=== PATIENT | male | born 1955 | race Caucasian/White ===

== ENCOUNTER 2023-05-09 13:08 | Inpatient (IN) ==
[2023-05-09] MEDS ORDERED: Furosemide 20 mg/2 ml IV VIAL IV ONE (15:20)
[2023-05-09 16:14] LABS: ABS Basophils 0.2 10^3/uL (0.0-0.1); ABS Eosinophils 0.2 10^3/uL (0.0-0.5); ABS Lymphocytes 1.3 10^3/uL (1.0-4.8); ABS Monocytes 0.7 10^3/uL (0.0-1.1); ABS Neutrophils 6.8 10^3/uL (1.5-7.6); Eosinophil % 2.6 %; Hematocrit 32.4 % (38-53); Hemoglobin 11.4 g/dL (13.2-16.3); Lymphocyte % 14.2 %; Mean Corpuscular Hemoglobin 31.3 pg (27-33); Mean Corpuscular Volume 89.3 fL (80-97); Mean Platelet Volume 7.5 fL (7.5-11.2); Platelet Count 421 10^3/uL (150-450); Red Blood Count 3.63 10^6/uL (4.06-5.63); Red Cell Distribution Width 12.5 % (12-17); White Blood Count 9.3 10^3/uL (3.6-10.2)
[2023-05-09 16:20] LABS: INR 1.22 (0.83-1.13)
[2023-05-09 16:57] LABS: ALT 13 U/L (7-52); AST 17 U/L (13-39); Albumin 3.2 g/dL (3.2-5.2); Albumin/Globulin Ratio 1.2 (1-3); Alkaline Phosphatase 49 U/L (35-149); Anion Gap 9 mmol/L (2-16); Blood Urea Nitrogen 13 mg/dL (6-24); CO2 Carbon Dioxide 24 mmol/L (22-32); Calcium 8.1 mg/dL (8.6-10.3); Chloride 106 mmol/L (101-111); Globulin 2.7 g/dL (2-4); Glucose 95 mg/dL (70-100); Magnesium 1.9 mg/dL (1.9-2.7); Potassium 3.9 mmol/L (3.5-5.0); Sodium 139 mmol/L (135-145); Total Bilirubin 0.6 mg/dL (0.2-1.0); Total Protein 5.9 g/dL (6.4-8.9)
[2023-05-09 17:00] LABS: C Reactive Protein 100.79 mg/L (<8.01); CRP High Sensitivity > 80.00 mg/L (<2.00)
[2023-05-09 17:09] LABS: LDH 209 U/L (140-271)
[2023-05-09] MEDS: Azithromycin 500 mg/250 ml NS 500 MG/250 ML BAG IVPB SCH (17:14)
[2023-05-09 17:18] LABS: Ferritin 496.6 ng/mL (24-336)
[2023-05-09 17:36] LABS: Erythrocyte Sed Rate 60 mm/Hr (0-19)
[2023-05-09 17:37] LABS: Urine Appearance Clear; Urine Bilirubin Negative (Negative); Urine Blood Negative (Negative); Urine Color Yellow; Urine Glucose Negative (Negative); Urine Ketones Negative (Negative); Urine Nitrite Negative (Negative); Urine Protein Negative (Negative); Urine Specific Gravity 1.017 (1.002-1.030); Urine Urobilinogen Negative (Negative)
[2023-05-09] MEDS ORDERED: Albuterol/Ipratropium NEB.SOL (2.5/0.5 MG) 3 ML NEB.SOLN INH PRN (17:54)
[2023-05-09] MEDS: cefTRIAXone 1 gm/50 mL D5W 1 GM/50 ML BAG IV SCH (18:29)
[2023-05-09 20:54] LABS: High Sensitivity Troponin 1 Hr 7 pg/mL (<20)
[2023-05-10 06:23] LABS: ABS Basophils 0.1 10^3/uL (0.0-0.1); ABS Eosinophils 0.4 10^3/uL (0.0-0.5); ABS Lymphocytes 1.4 10^3/uL (1.0-4.8); ABS Neutrophils 7.1 10^3/uL (1.5-7.6); Eosinophil % 3.6 %; Hematocrit 33.7 % (38-53); Lymphocyte % 13.7 %; Mean Corpuscular Hemoglobin 31.6 pg (27-33); Mean Corpuscular Hgb Conc 35.6 g/dL (31-36); Mean Corpuscular Volume 88.8 fL (80-97); Mean Platelet Volume 6.9 fL (7.5-11.2); Platelet Count 446 10^3/uL (150-450); Red Cell Distribution Width 12.6 % (12-17); White Blood Count 9.9 10^3/uL (3.6-10.2)
[2023-05-10 06:42] LABS: Calcium 8.2 mg/dL (8.6-10.3); Creatinine, Serum 0.85 mg/dL (0.67-1.17); Magnesium 1.9 mg/dL (1.9-2.7); Potassium 4.6 mmol/L (3.5-5.0); eGFR CKD-EPI 95.2 (>60)
[2023-05-10] MEDS ORDERED: Furosemide 40 mg/4 ml IV VIAL IV ONE (08:52)
[2023-05-10 14:15] LABS: Calcium 8.6 mg/dL (8.6-10.3); Creatinine, Serum 0.8 mg/dL (0.67-1.17); Potassium 3.7 mmol/L (3.5-5.0)
[2023-05-10] MEDS ORDERED: Potassium Chloride LIQUID 20 MEQ/15 ML LIQUID PO ONE (14:18)
[2023-05-10] MEDS ORDERED: Potassium Chlor 20 meq TAB.ER PO ONE (16:00)
[2023-05-10] MEDS: cefTRIAXone 1 gm/50 mL D5W 1 GM/50 ML BAG IV SCH (17:07)
[2023-05-10] MEDS: Azithromycin 500 mg/250 ml NS 500 MG/250 ML BAG IVPB SCH (19:17)
[2023-05-11 08:01] LABS: ABS Basophils 0.1 10^3/uL (0.0-0.1); ABS Eosinophils 0.3 10^3/uL (0.0-0.5); ABS Lymphocytes 1.4 10^3/uL (1.0-4.8); ABS Neutrophils 9.4 10^3/uL (1.5-7.6); ABS Nucleated RBC 0.01 10^3/ul; Eosinophil % 2.6 %; Hematocrit 37.5 % (38-53); Hemoglobin 12.8 g/dL (13.2-16.3); Lymphocyte % 11.6 %; Mean Corpuscular Hemoglobin 30.5 pg (27-33); Mean Corpuscular Hgb Conc 34.3 g/dL (31-36); Mean Corpuscular Volume 89.1 fL (80-97); Mean Platelet Volume 7.3 fL (7.5-11.2); Platelet Count 563 10^3/uL (150-450); Red Blood Count 4.21 10^6/uL (4.06-5.63); Red Cell Distribution Width 12.5 % (12-17); White Blood Count 12.2 10^3/uL (3.6-10.2)
[2023-05-11] MEDS ORDERED: Furosemide 40 mg/4 ml IV VIAL IV ONE (09:03)
[2023-05-11 09:12] LABS: Calcium 8.6 mg/dL (8.6-10.3); Creatinine, Serum 0.77 mg/dL (0.67-1.17); eGFR CKD-EPI 98.1 (>60)
[2023-05-11] MEDS: cefTRIAXone 1 gm/50 mL D5W 1 GM/50 ML BAG IV SCH (15:37)
[2023-05-11 15:56] LABS: Body Fluid Total Nucleated 902 /mcL
[2023-05-11 15:59] LABS: Body Fluid Appearance Cloudy; Body Fluid Color Yellow; Body Fluid Source Pleural Fluid
[2023-05-11] MEDS: Azithromycin 500 mg/250 ml NS 500 MG/250 ML BAG IVPB SCH (16:23)
[2023-05-11 16:55] LABS: Body Fluid Mono 53 %; Body Fluid Other Cells 5; Body Fluid Total Cells Counted 200
[2023-05-11 22:08] LABS: Total Protein 6.3 g/dL (6.4-8.9)
[2023-05-12 06:35] LABS: ABS Basophils 0.1 10^3/uL (0.0-0.1); ABS Eosinophils 0.4 10^3/uL (0.0-0.5); ABS Lymphocytes 1.7 10^3/uL (1.0-4.8); ABS Monocytes 0.8 10^3/uL (0.0-1.1); ABS Neutrophils 6.5 10^3/uL (1.5-7.6); Eosinophil % 3.9 %; Hematocrit 35.6 % (38-53); Hemoglobin 12.3 g/dL (13.2-16.3); Lymphocyte % 18.2 %; Mean Corpuscular Hemoglobin 30.7 pg (27-33); Mean Corpuscular Hgb Conc 34.5 g/dL (31-36); Mean Platelet Volume 7.1 fL (7.5-11.2); Platelet Count 529 10^3/uL (150-450); Red Cell Distribution Width 12.6 % (12-17); White Blood Count 9.4 10^3/uL (3.6-10.2)
[2023-05-12 06:51] LABS: Calcium 8.8 mg/dL (8.6-10.3); Creatinine, Serum 0.74 mg/dL (0.67-1.17); Phosphorus 3.8 mg/dL (2.5-5.0); eGFR CKD-EPI 99.3 (>60)
[2023-05-12 11:57] LABS: C-ANCA Negative (Negative); P-ANCA Negative (Negative)
[2023-05-12] MEDS: cefTRIAXone 1 gm/50 mL D5W 1 GM/50 ML BAG IV SCH (16:48)
[2023-05-12 22:21] LABS: Aspergillus IgG Ab 29.5 mg/L (<=102)
[2023-05-13 06:46] LABS: ABS Basophils 0.1 10^3/uL (0.0-0.1); ABS Eosinophils 0.4 10^3/uL (0.0-0.5); ABS Lymphocytes 1.7 10^3/uL (1.0-4.8); ABS Neutrophils 7.3 10^3/uL (1.5-7.6); Hematocrit 34.3 % (38-53); Hemoglobin 11.8 g/dL (13.2-16.3); Lymphocyte % 15.9 %; Mean Corpuscular Hemoglobin 30.4 pg (27-33); Mean Corpuscular Hgb Conc 34.4 g/dL (31-36); Mean Corpuscular Volume 88.3 fL (80-97); Mean Platelet Volume 7.3 fL (7.5-11.2); Platelet Count 532 10^3/uL (150-450); Red Blood Count 3.88 10^6/uL (4.06-5.63); Red Cell Distribution Width 12.5 % (12-17); White Blood Count 10.5 10^3/uL (3.6-10.2)
[2023-05-13 06:55] LABS: Calcium 8.5 mg/dL (8.6-10.3); Creatinine, Serum 0.82 mg/dL (0.67-1.17); Phosphorus 3.8 mg/dL (2.5-5.0); Potassium 4.3 mmol/L (3.5-5.0); eGFR CKD-EPI 96.3 (>60)
[2023-05-13] MEDS ORDERED: Furosemide 40 mg/4 ml IV VIAL IV ONE (09:33)
[2023-05-13 13:14] LABS: Lactate Dehydrogenase, BF 139 U/L
[2023-05-13 13:23] VITALS: BP 123/84
[2023-05-13 14:48] LABS: Aspergillus Fumigatus IgE <0.10 kU/L (<0.70); Immunoglobulin E 119 kU/L (<= 214)
[2023-05-13 15:37] LABS: Fluid Type, Protein, Total PLEURAL; Total Protein, BF 2.6 g/dL
[2023-05-13] MEDS: cefTRIAXone 1 gm/50 mL D5W 1 GM/50 ML BAG IV SCH (16:49)
== END 2023-05-13 18:55 | disposition home or self-care (01) | DRG 193 ==
LOC: ED 13:08 → EDHOLD 15:02 → SUATTDRO 15:02 → MED 18:58
PROVIDERS: ADMIT Internal Medicine; ATTEND Internal Medicine

== ENCOUNTER 2023-05-23 10:38 | Inpatient (IN) ==
[2023-05-23 14:36] LABS: ABS Basophils 0.1 10^3/uL (0.0-0.1); ABS Eosinophils 0.2 10^3/uL (0.0-0.5); ABS Lymphocytes 1.5 10^3/uL (1.0-4.8); ABS Monocytes 1.1 10^3/uL (0.0-1.1); ABS Neutrophils 9.6 10^3/uL (1.5-7.6); Eosinophil % 1.2 %; Hematocrit 34.4 % (38-53); Hemoglobin 11.9 g/dL (13.2-16.3); Lymphocyte % 12.2 %; Mean Corpuscular Hemoglobin 30.4 pg (27-33); Mean Corpuscular Hgb Conc 34.7 g/dL (31-36); Mean Corpuscular Volume 87.6 fL (80-97); Platelet Count 625 10^3/uL (150-450); Red Blood Count 3.92 10^6/uL (4.06-5.63); White Blood Count 12.5 10^3/uL (3.6-10.2)
[2023-05-23 14:46] LABS: Albumin 3.8 g/dL (3.2-5.2); Albumin/Globulin Ratio 1.2 (1-3); C Reactive Protein 77.06 mg/L (<8.01); Calcium 9.2 mg/dL (8.6-10.3); Creatinine, Serum 0.84 mg/dL (0.67-1.17); Globulin 3.2 g/dL (2-4); Potassium 4.4 mmol/L (3.5-5.0); Total Bilirubin 0.5 mg/dL (0.2-1.0); eGFR CKD-EPI 95.6 (>60)
[2023-05-23 14:50] LABS: INR 1.25 (0.83-1.13)
[2023-05-23] MEDS ORDERED: Vancomycin 1,000 MG in NS 0.9% 250 ml 250 ML IVPB ONE (17:59)
[2023-05-23] MEDS ORDERED: Piperacillin/Tazobac 3.375 BAG 3.375 GM/100 ML BAG IV ONE ×2 (17:59→23:00)
[2023-05-23] MEDS ORDERED: Enoxaparin 40 MG/0.4 ML SYR SUBCUT ONE (18:37)
[2023-05-23] MEDS ORDERED: Vancomycin per Pharmacy 1 EA NOTE FOLLOW UP SCH (21:00)
[2023-05-23] MEDS ORDERED: Zosyn per Pharmacy NOTE FOLLOW UP SCH (21:00)
[2023-05-23] MEDS ORDERED: ZOSYN 3.375 GM Q8H per EXTENDED INFUSION IV SCH (22:30)
[2023-05-23] MEDS: ZOSYN 3.375 GM Q8H per EXTENDED INFUSION IV SCH (23:18)
[2023-05-24] MEDS: Vancomycin 1,250 MG in NS 0.9% 250 ml 250 ML IVPB SCH ×2 (05:34→19:48)
[2023-05-24 06:24] LABS: Calcium 8.7 mg/dL (8.6-10.3); Creatinine, Serum 0.86 mg/dL (0.67-1.17); Potassium 3.9 mmol/L (3.5-5.0); eGFR CKD-EPI 94.9 (>60)
[2023-05-24 06:42] LABS: ABS Basophils 0.1 10^3/uL (0.0-0.1); ABS Eosinophils 0.4 10^3/uL (0.0-0.5); ABS Lymphocytes 1.4 10^3/uL (1.0-4.8); ABS Monocytes 1.3 10^3/uL (0.0-1.1); ABS Neutrophils 9.9 10^3/uL (1.5-7.6); Eosinophil % 2.8 %; Hematocrit 33.5 % (38-53); Hemoglobin 11.4 g/dL (13.2-16.3); Lymphocyte % 10.4 %; Mean Corpuscular Hemoglobin 29.6 pg (27-33); Mean Corpuscular Hgb Conc 34.1 g/dL (31-36); Mean Corpuscular Volume 86.9 fL (80-97); Mean Platelet Volume 7.2 fL (7.5-11.2); Platelet Count 556 10^3/uL (150-450); Red Blood Count 3.85 10^6/uL (4.06-5.63); Red Cell Distribution Width 13.2 % (12-17)
[2023-05-24] MEDS: ZOSYN 3.375 GM Q8H per EXTENDED INFUSION IV SCH ×3 (07:19→22:25)
[2023-05-24] MEDS: Aspirin EC 81 mg TAB.EC (enteric coated) PO SCH (09:17)
[2023-05-24] MEDS ORDERED: Vancomycin 1,000 MG in NS 0.9% 250 ml 250 ML IVPB ONE (17:00)
[2023-05-24 20:04] LABS: Body Fluid Total Nucleated 511 /mcL
[2023-05-24 20:38] LABS: Body Fluid Appearance Clear; Body Fluid Color Yellow; Body Fluid Mono 33 %; Body Fluid Other Cells 80; Body Fluid Source Pleural Fluid; Body Fluid Total Cells Counted 200
[2023-05-25] MEDS ORDERED: Vancomycin Trough Check NOTE FOLLOW UP ONE (06:00)
[2023-05-25 06:23] LABS: ABS Basophils 0.1 10^3/uL (0.0-0.1); ABS Eosinophils 0.4 10^3/uL (0.0-0.5); ABS Lymphocytes 1.3 10^3/uL (1.0-4.8); ABS Monocytes 1.3 10^3/uL (0.0-1.1); ABS Neutrophils 11.8 10^3/uL (1.5-7.6); Eosinophil % 2.7 %; Hematocrit 35.4 % (38-53); Lymphocyte % 8.4 %; Mean Corpuscular Hemoglobin 29.7 pg (27-33); Mean Corpuscular Volume 87.3 fL (80-97); Mean Platelet Volume 6.8 fL (7.5-11.2); Platelet Count 559 10^3/uL (150-450); Red Blood Count 4.05 10^6/uL (4.06-5.63); Red Cell Distribution Width 13.2 % (12-17); White Blood Count 14.9 10^3/uL (3.6-10.2)
[2023-05-25] MEDS: ZOSYN 3.375 GM Q8H per EXTENDED INFUSION IV SCH ×3 (06:26→22:35)
[2023-05-25 06:46] LABS: Calcium 8.7 mg/dL (8.6-10.3); Creatinine, Serum 0.75 mg/dL (0.67-1.17); Magnesium 1.9 mg/dL (1.9-2.7); Potassium 3.7 mmol/L (3.5-5.0); eGFR CKD-EPI 98.9 (>60)
[2023-05-25 07:01] LABS: Vancomycin Trough 8.2 mcg/mL
[2023-05-25] MEDS ORDERED: Potassium Chlor 20 meq TAB.ER PO ONE (07:08)
[2023-05-25] MEDS ORDERED: Furosemide 20 mg/2 ml IV VIAL IV SLOW PU ONE ×2 (07:13→17:40)
[2023-05-25] MEDS: Vancomycin 1,250 MG in NS 0.9% 250 ml 250 ML IVPB SCH ×2 (07:19→19:11)
[2023-05-25] MEDS: Aspirin EC 81 mg TAB.EC (enteric coated) PO SCH (07:54)
[2023-05-25] MEDS: Enoxaparin 40 MG/0.4 ML SYR SUBCUT SCH (07:56)
[2023-05-25] MEDS ORDERED: Iohexol 350 (CONTRAST) 500 ML MDV IV ONE (09:15)
[2023-05-25 16:21] LABS: TSH Ultra Thyroid Stim Horm 1.95 mcIU/mL (0.34-5.60)
[2023-05-26] MEDS: Vancomycin 1,250 MG in NS 0.9% 250 ml 250 ML IVPB SCH ×2 (05:28→20:17)
[2023-05-26 06:03] LABS: ABS Basophils 0.1 10^3/uL (0.0-0.1); ABS Eosinophils 0.5 10^3/uL (0.0-0.5); ABS Neutrophils 8.3 10^3/uL (1.5-7.6); ABS Nucleated RBC 0.01 10^3/ul; Eosinophil % 4.9 %; Hematocrit 30.2 % (38-53); Hemoglobin 10.6 g/dL (13.2-16.3); Lymphocyte % 9.1 %; Mean Corpuscular Hemoglobin 30.3 pg (27-33); Mean Corpuscular Hgb Conc 35.1 g/dL (31-36); Mean Corpuscular Volume 86.3 fL (80-97); Mean Platelet Volume 7.1 fL (7.5-11.2); Nucleated Red Blood Cells % 0.1 %/100WBC (0.0-0.8); Platelet Count 462 10^3/uL (150-450); Red Cell Distribution Width 13.4 % (12-17); White Blood Count 10.9 10^3/uL (3.6-10.2)
[2023-05-26 06:21] LABS: Calcium 8.3 mg/dL (8.6-10.3); Creatinine, Serum 0.77 mg/dL (0.67-1.17); Magnesium 1.8 mg/dL (1.9-2.7); Potassium 3.5 mmol/L (3.5-5.0); eGFR CKD-EPI 98.1 (>60)
[2023-05-26] MEDS ORDERED: Potassium Chlor 20 meq TAB.ER PO ONE (07:36)
[2023-05-26] MEDS: ZOSYN 3.375 GM Q8H per EXTENDED INFUSION IV SCH ×3 (07:37→23:30)
[2023-05-26] MEDS: Enoxaparin 40 MG/0.4 ML SYR SUBCUT SCH (09:56)
[2023-05-26] MEDS: Aspirin EC 81 mg TAB.EC (enteric coated) PO SCH (10:16)
[2023-05-26 15:27] LABS: Lactate Dehydrogenase, BF 154 U/L
[2023-05-26 18:22] LABS: JO-1 Antibody <0.2 U; RNP IgG Antibodies <0.2 U; SS-A/Ro Antibody <0.2 U; SS-B/La Antibody <0.2 U; Scl 70 Ab, IgG, S <0.2 U; Sm (Smith) IgG Antibody <0.2 U
[2023-05-26 18:54] LABS: Cyclic Citrullinated Pept IgG <15.6 U
[2023-05-27] MEDS ORDERED: fentaNYL 100 mcg/2 ml 50 MCG/ML VIAL ONE (07:00)
[2023-05-27] MEDS ORDERED: Propofol 10 MG/ML 20 ML BTL ONE (07:00)
[2023-05-27] MEDS ORDERED: Lidocaine 2% PF 5 ML VIAL ONE (07:00)
[2023-05-27] MEDS ORDERED: Midazolam 2 mg/2 ml VIAL 1 mg/ml 2 ml VIAL (2 mg) ONE (07:00)
[2023-05-27] MEDS ORDERED: Sevoflurane BOTTLE ONE (07:05)
[2023-05-27] MEDS ORDERED: Benzocaine/Butamben/Tetracain (CETACAINE - SINGLE USE) 5 gm TOPICAL ONE (07:11)
[2023-05-27] MEDS ORDERED: Lidocaine 1% VIAL 10 MG/ML 30 ML VIAL ONE (07:11)
[2023-05-27] MEDS ORDERED: Lidocaine 2% JELLY 6 ML Topical TOPICAL ONE (07:12)
[2023-05-27] MEDS ORDERED: Furosemide 20 mg/2 ml IV VIAL IV ONE (07:29)
[2023-05-27] MEDS ORDERED: Dexmedetomidine 200 mcg/2 ml 2 ml VIAL (200 mcg) ONE ×2 (07:43)
[2023-05-27] MEDS ORDERED: Rocuronium 50 mg VIAL 10 mg/ml 5 ml VIAL (50 mg) ONE (07:48)
[2023-05-27] MEDS ORDERED: Succinylcholine 200 mg VIAL 20 mg/ml 10 ml VIAL (200 mg) ONE (07:49)
[2023-05-27] MEDS ORDERED: Ondansetron 4 mg VIAL 2 MG/ML 2 ml VIAL ONE (08:20)
[2023-05-27] MEDS ORDERED: Dexamethasone IV 4 MG/ML VIAL 1 ml VIAL ONE (08:20)
[2023-05-27] MEDS: Vancomycin 1,250 MG in NS 0.9% 250 ml 250 ML IVPB SCH ×2 (10:00→18:09)
[2023-05-27] MEDS: methylPREDNISolone SOD SUCC 40 mg/ml 1 ml VIAL IV SCH ×3 (10:55→21:25)
[2023-05-27] MEDS: Aspirin EC 81 mg TAB.EC (enteric coated) PO SCH (10:57)
[2023-05-27] MEDS: ZOSYN 3.375 GM Q8H per EXTENDED INFUSION IV SCH ×3 (12:09→23:34)
[2023-05-27 12:20] LABS: Fluid Type, Protein, Total Pleural Fluid; Glucose, BF 132 mg/dL; Total Protein, BF 2.5 g/dL
[2023-05-28] MEDS: methylPREDNISolone SOD SUCC 40 mg/ml 1 ml VIAL IV SCH ×4 (03:47→20:21)
[2023-05-28] MEDS: Vancomycin 1,250 MG in NS 0.9% 250 ml 250 ML IVPB SCH ×2 (05:40→18:41)
[2023-05-28] MEDS ORDERED: Albuterol/Ipratropium NEB.SOL (2.5/0.5 MG) 3 ML NEB.SOLN INH PRN (06:14)
[2023-05-28 06:25] LABS: Hematocrit 33.3 % (38-53); Mean Corpuscular Hemoglobin 28.8 pg (27-33); Mean Corpuscular Hgb Conc 33.2 g/dL (31-36); Mean Corpuscular Volume 86.8 fL (80-97); Mean Platelet Volume 7.1 fL (7.5-11.2); Platelet Count 584 10^3/uL (150-450); Red Blood Count 3.84 10^6/uL (4.06-5.63); Red Cell Distribution Width 13.2 % (12-17); White Blood Count 27.8 10^3/uL (3.6-10.2)
[2023-05-28] MEDS: ZOSYN 3.375 GM Q8H per EXTENDED INFUSION IV SCH ×3 (06:41→23:14)
[2023-05-28 06:42] LABS: Calcium 8.9 mg/dL (8.6-10.3); Creatinine, Serum 0.74 mg/dL (0.67-1.17); Magnesium 1.9 mg/dL (1.9-2.7); Potassium 3.9 mmol/L (3.5-5.0); eGFR CKD-EPI 99.3 (>60)
[2023-05-28 06:46] LABS: PCO2 Arterial 34 mmHg (35-45); PO2 Arterial 62 mmHg (80-100)
[2023-05-28] MEDS ORDERED: Furosemide 40 mg/4 ml IV VIAL IV SLOW PU ONE (07:06)
[2023-05-28 07:10] LABS: ABS Basophils 0.1 10^3/uL (0.0-0.1); ABS Lymphocytes 0.5 10^3/uL (1.0-4.8); ABS Monocytes 0.8 10^3/uL (0.0-1.1); ABS Neutrophils 26.4 10^3/uL (1.5-7.6); Lymphocyte % 1.7 %
[2023-05-28] MEDS: Aspirin EC 81 mg TAB.EC (enteric coated) PO SCH (09:25)
[2023-05-28] MEDS: Enoxaparin 40 MG/0.4 ML SYR SUBCUT SCH (09:25)
[2023-05-28] MEDS ORDERED: Anidulafungin 200 MG in NS 0.9% 250 ml 200 ML IVPB ONE (10:08)
[2023-05-28 13:36] LABS: C Reactive Protein 133.65 mg/L (<8.01)
[2023-05-28] MEDS: Morphine 2 MG/ML SYRINGE IV PRN ×2 (17:22→23:41)
[2023-05-29] MEDS ORDERED: Furosemide 20 mg/2 ml IV VIAL IV SLOW PU ONE (00:09)
[2023-05-29] MEDS: Morphine 2 MG/ML SYRINGE IV PRN ×2 (03:35→05:32)
[2023-05-29] MEDS: methylPREDNISolone SOD SUCC 40 mg/ml 1 ml VIAL IV SCH ×3 (03:35→14:32)
[2023-05-29 04:54] LABS: Hematocrit 33.5 % (38-53); Hemoglobin 11.2 g/dL (13.2-16.3); Mean Corpuscular Hemoglobin 29.4 pg (27-33); Mean Corpuscular Hgb Conc 33.6 g/dL (31-36); Mean Corpuscular Volume 87.6 fL (80-97); Platelet Count 591 10^3/uL (150-450); Red Blood Count 3.82 10^6/uL (4.06-5.63); Red Cell Distribution Width 13.5 % (12-17); White Blood Count 33.3 10^3/uL (3.6-10.2)
[2023-05-29] MEDS ORDERED: Midazolam 2 mg/2 ml VIAL 1 mg/ml 2 ml VIAL (2 mg) IV SLOW PU ONE (05:39)
[2023-05-29] MEDS ORDERED: Midazolam 2 mg/2 ml VIAL 1 mg/ml 2 ml VIAL (2 mg) ONE (05:44)
[2023-05-29 05:48] LABS: ABS Lymphocytes 0.6 10^3/uL (1.0-4.8); ABS Monocytes 1.6 10^3/uL (0.0-1.1); Eosinophil % 0.1 %; Lymphocyte % 1.7 %
[2023-05-29] MEDS: Vancomycin 1,250 MG in NS 0.9% 250 ml 250 ML IVPB SCH ×2 (06:32→20:33)
[2023-05-29 06:36] LABS: Anion Gap 12 mmol/L (2-16); Blood Urea Nitrogen 22 mg/dL (6-24); CO2 Carbon Dioxide 25 mmol/L (22-32); Calcium 8.8 mg/dL (8.6-10.3); Chloride 104 mmol/L (101-111); Creatinine, Serum 0.93 mg/dL (0.67-1.17); Glucose 152 mg/dL (70-100); Sodium 141 mmol/L (135-145)
[2023-05-29 06:45] LABS: Phosphorus 4.2 mg/dL (2.5-5.0); Potassium Redraw 3.8 mmol/L (3.5-5.0)
[2023-05-29] MEDS ORDERED: Phenylephrine 40 mcg/mL 10mL (400mcg) SYRINGE IV PRN (07:58)
[2023-05-29] MEDS ORDERED: Rocuronium 50 mg VIAL 10 mg/ml 5 ml VIAL (50 mg) ONE ×4 (07:59→16:05)
[2023-05-29] MEDS ORDERED: Furosemide 40 mg/4 ml IV VIAL IV SLOW PU ONE (08:00)
[2023-05-29] MEDS ORDERED: Etomidate 40 mg/20 ml (2 MG/ML) 20 ml VIAL (40 mg) ONE (08:13)
[2023-05-29] MEDS ORDERED: Midazolam 10 mg/10 ml VIAL 1 mg/ml 10 ml VIAL (10 mg) ONE (08:13)
[2023-05-29] MEDS ORDERED: Midazolam PREMIXBAG 1 MG/ML NS 100 ML IV SCH (08:45)
[2023-05-29] MEDS ORDERED: Midazolam 5 mg/5 ml VIAL 1 mg/ml 5 ml VIAL (5 mg) ONE (08:45)
[2023-05-29] MEDS ORDERED: fentaNYL 100 mcg/2 ml 50 MCG/ML VIAL ONE (08:46)
[2023-05-29] MEDS ORDERED: fentaNYL 100 mcg/2 ml 50 MCG/ML VIAL IV SLOW PU PRN ×2 (08:48→08:51)
[2023-05-29] MEDS ORDERED: Midazolam 5 mg/5 ml VIAL 1 mg/ml 5 ml VIAL (5 mg) IV SLOW PU ONE ×2 (08:50→09:29)
[2023-05-29] MEDS ORDERED: Rocuronium 50 mg VIAL 10 mg/ml 5 ml VIAL (50 mg) IV ONE ×2 (08:54→16:36)
[2023-05-29] MEDS ORDERED: Etomidate 20 mg/10 ml 2 MG/ML 10 ml VIAL IV ONE (08:54)
[2023-05-29] MEDS ORDERED: fentaNYL INFUSION 50 mcg/mL VL 2,500 MCG/50 ML VIAL IV SCH ×2 (09:00→17:52)
[2023-05-29] MEDS: Chlorhexidine MOUTHWASH 0.12% 15 ML UDC TOPICAL SCH ×4 (09:00→20:40)
[2023-05-29] MEDS: Enoxaparin 40 MG/0.4 ML SYR SUBCUT SCH (09:25)
[2023-05-29 09:45] LABS: Resp Rate 20
[2023-05-29 09:48] LABS: PO2 Arterial 123 mmHg (80-100)
[2023-05-29 09:51] LABS: PCO2 Arterial 92 mmHg (35-45)
[2023-05-29] MEDS: Pantoprazole VIAL 40 MG VIAL IV SCH (10:12)
[2023-05-29] MEDS: ZOSYN 3.375 GM Q8H per EXTENDED INFUSION IV SCH ×3 (10:19→18:53)
[2023-05-29] MEDS: Anidulafungin 100 MG in NS 0.9% 100 ml BAG 100 ML IVPB SCH (10:39)
[2023-05-29] MEDS: Aspirin EC 81 mg TAB.EC (enteric coated) PO SCH (11:23)
[2023-05-29 11:47] LABS: Urine Appearance Cloudy; Urine Bilirubin Negative (Negative); Urine Blood 1+ (Negative); Urine Color Yellow; Urine Glucose Negative (Negative); Urine Ketones Negative (Negative); Urine Nitrite Negative (Negative); Urine Protein Negative (Negative); Urine Specific Gravity 1.016 (1.002-1.030); Urine Urobilinogen Negative (Negative)
[2023-05-29 11:56] LABS: PCO2 Arterial 64 mmHg (35-45); PO2 Arterial 140 mmHg (80-100)
[2023-05-29 12:03] LABS: Urine Bacteria Absent (Absent); Urine Red Blood Cell 2+(6-10/hpf) (Absent); Urine Squamous Epithelial Cell Present (Absent); Urine White Blood Cell Trace(0-5/hpf) (Absent)
[2023-05-29] MEDS: Norepinephrine 4 MG/250mL D5W 4,000 MCG/250 ML BAG IV SCH (14:34)
[2023-05-29 15:31] LABS: PCO2 Arterial 44 mmHg (35-45); PO2 Arterial 78 mmHg (80-100)
[2023-05-29 16:53] LABS: Body Fluid Source Broncheoalveolar lav
[2023-05-29] MEDS ORDERED: D5W IVPB SCH (17:00)
[2023-05-29] MEDS ORDERED: SULFAMETHOXAZOLE IVPB SCH (17:00)
[2023-05-29] MEDS ORDERED: TRIMETH IVPB SCH (17:00)
[2023-05-29] MEDS ORDERED: Tranexamic Acid 1,000 MG/10 ML SDV INH SCH (17:00)
[2023-05-29 17:06] LABS: Body Fluid Appearance Bloody; Body Fluid Color Red
[2023-05-29] MEDS ORDERED: Cisatracurium 100 MG in NS 0.9% 250 ml 200 ML IV SCH (17:30)
[2023-05-29 17:31] LABS: Activated Partial Thrombo Time 26.4 seconds (26.0-38.0); INR 1.27 (0.83-1.13)
[2023-05-29 17:33] LABS: Body Fluid Other Cells 37; Body Fluid Total Cells Counted 300
[2023-05-29] MEDS: Cisatracurium 100 MG in NS 0.9% 250 ml 200 ML IV SCH (18:50)
[2023-05-29 18:57] LABS: PCO2 Arterial 43 mmHg (35-45); PO2 Arterial 118 mmHg (80-100)
[2023-05-29 19:13] LABS: High Sensitivity Troponin 1 Hr 144 pg/mL (<20)
[2023-05-29] MEDS: fentaNYL INFUSION 50 mcg/mL VL 2,500 MCG/50 ML VIAL IV SCH ×2 (19:58→22:27)
[2023-05-29] MEDS: methylPREDNISolone SOD SUCC 1,000 MG in NS 0.9% 100 ml BAG 100 ML IVPB SCH (20:02)
[2023-05-29] MEDS: Midazolam PREMIXBAG 1 MG/ML NS 100 ML IV SCH ×2 (20:03→22:32)
[2023-05-29 21:50] LABS: Resp Rate 25
[2023-05-29 21:51] LABS: PCO2 Arterial 57 mmHg (35-45); PO2 Arterial 99 mmHg (80-100)
[2023-05-29] MEDS: TRIMETH IVPB SCH (21:54)
[2023-05-29] MEDS: D5W IVPB SCH (21:54)
[2023-05-29] MEDS: SULFAMETHOXAZOLE IVPB SCH (21:54)
[2023-05-30] MEDS: Chlorhexidine MOUTHWASH 0.12% 15 ML UDC TOPICAL SCH ×6 (01:25→20:35)
[2023-05-30] MEDS: ZOSYN 3.375 GM Q8H per EXTENDED INFUSION IV SCH ×3 (01:59→17:59)
[2023-05-30] MEDS: D5W IVPB SCH ×4 (04:08→20:35)
[2023-05-30] MEDS: TRIMETH IVPB SCH ×4 (04:08→20:35)
[2023-05-30] MEDS: SULFAMETHOXAZOLE IVPB SCH ×4 (04:08→20:35)
[2023-05-30 05:52] LABS: Resp Rate 26
[2023-05-30 05:53] LABS: PCO2 Arterial 56 mmHg (35-45); PO2 Arterial 103 mmHg (80-100)
[2023-05-30 05:56] LABS: ABS Lymphocytes 0.4 10^3/uL (1.0-4.8); ABS Monocytes 0.4 10^3/uL (0.0-1.1); ABS Neutrophils 14.8 10^3/uL (1.5-7.6); Hematocrit 26.4 % (38-53); Hemoglobin 8.8 g/dL (13.2-16.3); Lymphocyte % 2.6 %; Mean Corpuscular Hemoglobin 29.5 pg (27-33); Mean Corpuscular Hgb Conc 33.2 g/dL (31-36); Mean Corpuscular Volume 88.8 fL (80-97); Platelet Count 353 10^3/uL (150-450); Red Blood Count 2.97 10^6/uL (4.06-5.63); Red Cell Distribution Width 13.6 % (12-17); White Blood Count 15.6 10^3/uL (3.6-10.2)
[2023-05-30] MEDS ORDERED: Vancomycin Trough Check NOTE FOLLOW UP ONE (06:00)
[2023-05-30 06:15] LABS: Calcium 7.9 mg/dL (8.6-10.3); Creatinine, Serum 1.28 mg/dL (0.67-1.17); Magnesium 2.4 mg/dL (1.9-2.7); Potassium 4.7 mmol/L (3.5-5.0); eGFR CKD-EPI 61.3 (>60)
[2023-05-30 06:32] LABS: Vancomycin Trough 17.8 mcg/mL
[2023-05-30] MEDS: Vancomycin 1,250 MG in NS 0.9% 250 ml 250 ML IVPB SCH (07:52)
[2023-05-30] MEDS: Tranexamic Acid 1,000 MG/10 ML SDV INH SCH ×4 (08:07→18:56)
[2023-05-30] MEDS: Pantoprazole VIAL 40 MG VIAL IV SCH (08:52)
[2023-05-30] MEDS: fentaNYL INFUSION 50 mcg/mL VL 2,500 MCG/50 ML VIAL IV SCH ×2 (09:34→22:31)
[2023-05-30] MEDS: Anidulafungin 100 MG in NS 0.9% 100 ml BAG 100 ML IVPB SCH (11:21)
[2023-05-30] MEDS: Midazolam PREMIXBAG 1 MG/ML NS 100 ML IV SCH (11:28)
[2023-05-30 11:47] LABS: ABS Basophils 0.2 10^3/uL (0.0-0.1); ABS Lymphocytes 0.4 10^3/uL (1.0-4.8); ABS Monocytes 0.4 10^3/uL (0.0-1.1); ABS Neutrophils 13.8 10^3/uL (1.5-7.6); Hematocrit 27.8 % (38-53); Hemoglobin 9.2 g/dL (13.2-16.3); Lymphocyte % 2.8 %; Mean Corpuscular Hemoglobin 29.5 pg (27-33); Mean Corpuscular Hgb Conc 33.2 g/dL (31-36); Mean Corpuscular Volume 89.1 fL (80-97); Mean Platelet Volume 6.9 fL (7.5-11.2); Platelet Count 353 10^3/uL (150-450); Red Blood Count 3.12 10^6/uL (4.06-5.63); Red Cell Distribution Width 13.8 % (12-17); White Blood Count 14.9 10^3/uL (3.6-10.2)
[2023-05-30] MEDS ORDERED: Dextrose 50% Syringe 50 ml 25 GM/50 ML SYRINGE IV PUSH PRN (11:50)
[2023-05-30] MEDS: Cisatracurium 100 MG in NS 0.9% 250 ml 200 ML IV SCH (15:01)
[2023-05-30] MEDS: methylPREDNISolone SOD SUCC 1,000 MG in NS 0.9% 100 ml BAG 100 ML IVPB SCH (17:10)
[2023-05-30] MEDS: Norepinephrine 4 MG/250mL D5W 4,000 MCG/250 ML BAG IV SCH (18:06)
[2023-05-31] MEDS: Chlorhexidine MOUTHWASH 0.12% 15 ML UDC TOPICAL SCH ×6 (00:10→20:26)
[2023-05-31] MEDS: Midazolam PREMIXBAG 1 MG/ML NS 100 ML IV SCH ×2 (00:27→13:33)
[2023-05-31] MEDS: ZOSYN 3.375 GM Q8H per EXTENDED INFUSION IV SCH ×3 (01:08→18:11)
[2023-05-31] MEDS: TRIMETH IVPB SCH ×2 (02:38→09:45)
[2023-05-31] MEDS: D5W IVPB SCH ×2 (02:38→09:45)
[2023-05-31] MEDS: SULFAMETHOXAZOLE IVPB SCH ×2 (02:38→09:45)
[2023-05-31 04:15] LABS: ABS Lymphocytes 0.3 10^3/uL (1.0-4.8); ABS Monocytes 0.4 10^3/uL (0.0-1.1); ABS Neutrophils 11.1 10^3/uL (1.5-7.6); ABS Nucleated RBC 0.01 10^3/ul; Eosinophil % 0.1 %; Hematocrit 26.8 % (38-53); Hemoglobin 8.9 g/dL (13.2-16.3); Lymphocyte % 2.2 %; Mean Corpuscular Hemoglobin 29.4 pg (27-33); Mean Corpuscular Hgb Conc 33.1 g/dL (31-36); Mean Corpuscular Volume 88.6 fL (80-97); Mean Platelet Volume 7.1 fL (7.5-11.2); Platelet Count 284 10^3/uL (150-450); Red Blood Count 3.02 10^6/uL (4.06-5.63); Red Cell Distribution Width 13.8 % (12-17); White Blood Count 11.8 10^3/uL (3.6-10.2)
[2023-05-31 04:45] LABS: Calcium 7.8 mg/dL (8.6-10.3); Creatinine, Serum 1.54 mg/dL (0.67-1.17); Magnesium 2.7 mg/dL (1.9-2.7); Potassium 4.8 mmol/L (3.5-5.0); eGFR CKD-EPI 49.1 (>60)
[2023-05-31 06:38] LABS: PCO2 Arterial 69 mmHg (35-45); PO2 Arterial 94 mmHg (80-100)
[2023-05-31] MEDS: Tranexamic Acid 1,000 MG/10 ML SDV INH SCH ×2 (07:26→14:28)
[2023-05-31] MEDS: Albuterol/Ipratropium NEB.SOL (2.5/0.5 MG) 3 ML NEB.SOLN INH SCH ×2 (09:00→10:59)
[2023-05-31] MEDS: Pantoprazole VIAL 40 MG VIAL IV SCH (09:12)
[2023-05-31] MEDS ORDERED: Albuterol/Ipratropium NEB.SOL (2.5/0.5 MG) 3 ML NEB.SOLN INH PRN (11:19)
[2023-05-31] MEDS: fentaNYL INFUSION 50 mcg/mL VL 2,500 MCG/50 ML VIAL IV SCH (11:25)
[2023-05-31 11:55] LABS: PCO2 Arterial 43 mmHg (35-45); PO2 Arterial 152 mmHg (80-100)
[2023-05-31] MEDS ORDERED: Sulfamethox/Trimethoprim DS TAB 800/160 mg PO SCH (12:00)
[2023-05-31] MEDS: Anidulafungin 100 MG in NS 0.9% 100 ml BAG 100 ML IVPB SCH (12:24)
[2023-05-31 14:47] LABS: Fungitell Qualitative Result Negative (Negative); Fungitell Quantitative Value <31 pg/mL (<60 pg/mL)
[2023-05-31] MEDS: methylPREDNISolone SOD SUCC 1,000 MG in NS 0.9% 100 ml BAG 100 ML IVPB SCH (16:25)
[2023-05-31] MEDS: Sulfamethox/Trimethoprim DS TAB 800/160 mg PO SCH (16:51)
[2023-05-31] MEDS ORDERED: Enoxaparin 40 MG/0.4 ML SYR SUBCUT SCH (18:00)
[2023-05-31] MEDS: Senna TAB 8.6 mg TAB PO SCH (20:27)
[2023-05-31] MEDS: Polyethylene Glycol 3350 17 GM PACKET PO SCH (20:27)
[2023-06-01] MEDS: Chlorhexidine MOUTHWASH 0.12% 15 ML UDC TOPICAL SCH ×7 (00:31→23:08)
[2023-06-01] MEDS: ZOSYN 3.375 GM Q8H per EXTENDED INFUSION IV SCH ×3 (01:09→18:47)
[2023-06-01] MEDS: fentaNYL INFUSION 50 mcg/mL VL 2,500 MCG/50 ML VIAL IV SCH ×3 (04:59→19:08)
[2023-06-01 05:02] LABS: Hematocrit 27.6 % (38-53); Hemoglobin 9.3 g/dL (13.2-16.3); Mean Corpuscular Hemoglobin 29.4 pg (27-33); Mean Corpuscular Hgb Conc 33.7 g/dL (31-36); Mean Corpuscular Volume 87.2 fL (80-97); Mean Platelet Volume 7.3 fL (7.5-11.2); Platelet Count 317 10^3/uL (150-450); Red Blood Count 3.16 10^6/uL (4.06-5.63); Red Cell Distribution Width 13.7 % (12-17); White Blood Count 18.5 10^3/uL (3.6-10.2)
[2023-06-01 05:27] LABS: Calcium 8.3 mg/dL (8.6-10.3); Creatinine, Serum 1.6 mg/dL (0.67-1.17); Magnesium 3.1 mg/dL (1.9-2.7); Potassium 3.9 mmol/L (3.5-5.0); eGFR CKD-EPI 46.9 (>60)
[2023-06-01 05:42] LABS: PCO2 Arterial 39 mmHg (35-45); PO2 Arterial 101 mmHg (80-100)
[2023-06-01 05:43] LABS: Resp Rate 27
[2023-06-01 05:45] LABS: ABS Lymphocytes 0.3 10^3/uL (1.0-4.8); ABS Neutrophils 17.2 10^3/uL (1.5-7.6); ABS Nucleated RBC 0.02 10^3/ul; Lymphocyte % 1.4 %; Nucleated Red Blood Cells % 0.1 %/100WBC (0.0-0.8); RBC Morphology Normal (Normal)
[2023-06-01] MEDS: Midazolam PREMIXBAG 1 MG/ML NS 100 ML IV SCH ×3 (07:26→19:03)
[2023-06-01] MEDS: Tranexamic Acid 1,000 MG/10 ML SDV INH SCH ×3 (08:39→23:00)
[2023-06-01] MEDS ORDERED: Cisatracurium 100 MG in NS 0.9% 250 ml 200 ML IV SCH ×2 (09:15→17:45)
[2023-06-01] MEDS ORDERED: Rocuronium 50 mg VIAL 10 mg/ml 5 ml VIAL (50 mg) IV ONE (09:16)
[2023-06-01] MEDS ORDERED: Rocuronium 50 mg VIAL 10 mg/ml 5 ml VIAL (50 mg) ONE (09:18)
[2023-06-01] MEDS ORDERED: Midazolam 2 mg/2 ml VIAL 1 mg/ml 2 ml VIAL (2 mg) IV SLOW PU PRN (09:20)
[2023-06-01] MEDS ORDERED: Midazolam 2 mg/2 ml VIAL 1 mg/ml 2 ml VIAL (2 mg) ONE (09:23)
[2023-06-01] MEDS: Anidulafungin 100 MG in NS 0.9% 100 ml BAG 100 ML IVPB SCH (09:34)
[2023-06-01] MEDS ORDERED: Propofol 10 mg/ml 100 ML BTL 1,000 MG/100 ML BTL IV SCH ×3 (10:00→11:16)
[2023-06-01] MEDS ORDERED: Budesonide NEB 0.5 MG/2 ML NEB.SOLN ONE (10:05)
[2023-06-01] MEDS: Budesonide NEB 0.5 MG/2 ML NEB.SOLN INH SCH ×2 (10:15→19:05)
[2023-06-01] MEDS: Pantoprazole VIAL 40 MG VIAL IV SCH (10:27)
[2023-06-01] MEDS: Polyethylene Glycol 3350 17 GM PACKET PO SCH ×2 (10:27→21:16)
[2023-06-01] MEDS: Sulfamethox/Trimethoprim DS TAB 800/160 mg PO SCH (11:00)
[2023-06-01] MEDS ORDERED: Albuterol/Ipratropium NEB.SOL (2.5/0.5 MG) 3 ML NEB.SOLN INH SCH (13:00)
[2023-06-01] MEDS: Metoclopramide 5 MG/ML VIAL (10 mg) IV SCH ×2 (13:17→21:16)
[2023-06-01 13:48] LABS: PCO2 Arterial 53 mmHg (35-45); PO2 Arterial 111 mmHg (80-100)
[2023-06-01 14:22] LABS: Body Fluid Source Broncheoalveolar lav
[2023-06-01] MEDS: Propofol 10 mg/ml 100 ML BTL 1,000 MG/100 ML BTL IV SCH ×3 (14:39→23:31)
[2023-06-01] MEDS ORDERED: Levalbuterol 1.25MG/0.5ML NEB.SOL ONE (15:03)
[2023-06-01] MEDS: Levalbuterol 0.63MG/3ML NEB UNIT OF USE INH SCH ×2 (15:09→15:10)
[2023-06-01] MEDS: Albuterol/Ipratropium NEB.SOL (2.5/0.5 MG) 3 ML NEB.SOLN INH SCH ×6 (16:10→22:57)
[2023-06-01 16:14] LABS: PCO2 Arterial 56 mmHg (35-45); PO2 Arterial 215 mmHg (80-100)
[2023-06-01 16:22] LABS: Body Fluid Appearance Bloody; Body Fluid Color Red
[2023-06-01] MEDS: methylPREDNISolone SOD SUCC 1,000 MG in NS 0.9% 100 ml BAG 100 ML IVPB SCH (16:39)
[2023-06-01] MEDS ORDERED: Furosemide 20 mg/2 ml IV VIAL IV SLOW PU ONE (16:59)
[2023-06-01 17:06] LABS: Resp Rate 15
[2023-06-01 17:08] LABS: PO2 Arterial 196 mmHg (80-100)
[2023-06-01 17:11] LABS: PCO2 Arterial 73 mmHg (35-45)
[2023-06-01 17:23] LABS: Body Fluid Total Cells Counted 300
[2023-06-01] MEDS: Morphine 2 MG/ML SYRINGE IV PRN (17:49)
[2023-06-01 18:05] LABS: PCO2 Arterial 43 mmHg (35-45); PO2 Arterial 169 mmHg (80-100)
[2023-06-01] MEDS ORDERED: Norepinephrine 4 MG/250mL D5W 4,000 MCG/250 ML BAG IV ONE (20:06)
[2023-06-01] MEDS: Norepinephrine 4 MG/250mL D5W 4,000 MCG/250 ML BAG IV SCH (20:15)
[2023-06-01] MEDS: Senna TAB 8.6 mg TAB PO SCH (21:16)
[2023-06-01 22:10] LABS: PCO2 Arterial 50 mmHg (35-45); PO2 Arterial 117 mmHg (80-100)
[2023-06-02] MEDS: ZOSYN 3.375 GM Q8H per EXTENDED INFUSION IV SCH ×3 (01:27→17:44)
[2023-06-02] MEDS: Albuterol/Ipratropium NEB.SOL (2.5/0.5 MG) 3 ML NEB.SOLN INH SCH ×8 (01:35→20:30)
[2023-06-02] MEDS: Midazolam PREMIXBAG 1 MG/ML NS 100 ML IV SCH ×3 (03:15→23:58)
[2023-06-02] MEDS: Norepinephrine 4 MG/250mL D5W 4,000 MCG/250 ML BAG IV SCH ×2 (03:18→22:10)
[2023-06-02 04:20] LABS: PCO2 Arterial 60 mmHg (35-45); PO2 Arterial 116 mmHg (80-100)
[2023-06-02] MEDS: Propofol 10 mg/ml 100 ML BTL 1,000 MG/100 ML BTL IV SCH ×4 (04:23→22:13)
[2023-06-02] MEDS: Chlorhexidine MOUTHWASH 0.12% 15 ML UDC TOPICAL SCH ×5 (04:24→22:00)
[2023-06-02 04:25] LABS: Hematocrit 24.6 % (38-53); Hemoglobin 8.2 g/dL (13.2-16.3); Mean Corpuscular Hemoglobin 29.2 pg (27-33); Mean Corpuscular Hgb Conc 33.5 g/dL (31-36); Mean Corpuscular Volume 87.2 fL (80-97); Mean Platelet Volume 7.4 fL (7.5-11.2); Platelet Count 239 10^3/uL (150-450); Red Blood Count 2.82 10^6/uL (4.06-5.63); Red Cell Distribution Width 14.5 % (12-17); White Blood Count 20.2 10^3/uL (3.6-10.2)
[2023-06-02 04:40] LABS: Calcium 8.3 mg/dL (8.6-10.3); Creatinine, Serum 2.04 mg/dL (0.67-1.17); Magnesium 3.5 mg/dL (1.9-2.7); eGFR CKD-EPI 35.1 (>60)
[2023-06-02 05:55] LABS: ABS Basophils 0.1 10^3/uL (0.0-0.1); ABS Eosinophils 0.1 10^3/uL (0.0-0.5); ABS Lymphocytes 0.2 10^3/uL (1.0-4.8); ABS Monocytes 0.7 10^3/uL (0.0-1.1); ABS Neutrophils 19.2 10^3/uL (1.5-7.6); ABS Nucleated RBC 0.01 10^3/ul; Eosinophil % 0.4 %; Lymphocyte % 0.8 %
[2023-06-02] MEDS: Budesonide NEB 0.5 MG/2 ML NEB.SOLN INH SCH ×2 (06:52→20:30)
[2023-06-02] MEDS: Tranexamic Acid 1,000 MG/10 ML SDV INH SCH ×2 (07:43→15:42)
[2023-06-02] MEDS ORDERED: Insulin GLARGINE 100 un/ml 10 ml VIAL SUBCUT ONE (07:59)
[2023-06-02] MEDS: Metoclopramide 5 MG/ML VIAL (10 mg) IV SCH ×3 (08:12→21:59)
[2023-06-02] MEDS: Polyethylene Glycol 3350 17 GM PACKET PO SCH ×2 (08:12→21:59)
[2023-06-02] MEDS: Pantoprazole VIAL 40 MG VIAL IV SCH (08:13)
[2023-06-02] MEDS ORDERED: Metoclopramide 5 MG/ML VIAL (10 mg) IV SCH (09:48)
[2023-06-02] MEDS ORDERED: Furosemide 40 mg/4 ml IV VIAL IV ONE (09:52)
[2023-06-02] MEDS: Anidulafungin 100 MG in NS 0.9% 100 ml BAG 100 ML IVPB SCH (10:30)
[2023-06-02 11:22] LABS: PCO2 Arterial 69 mmHg (35-45); PO2 Arterial 122 mmHg (80-100)
[2023-06-02] MEDS ORDERED: Methylnaltrexone 150 MG TAB PO SCH (12:00)
[2023-06-02 15:50] LABS: PCO2 Arterial 54 mmHg (35-45); PO2 Arterial 121 mmHg (80-100)
[2023-06-02] MEDS: methylPREDNISolone SOD SUCC 1,000 MG in NS 0.9% 100 ml BAG 100 ML IVPB SCH (16:02)
[2023-06-02] MEDS: Senna TAB 8.6 mg TAB PO SCH (21:59)
[2023-06-03] MEDS: Tranexamic Acid 1,000 MG/10 ML SDV INH SCH ×3 (00:07→16:00)
[2023-06-03] MEDS: Midazolam 2 mg/2 ml VIAL 1 mg/ml 2 ml VIAL (2 mg) IV SLOW PU PRN ×3 (00:25→04:12)
[2023-06-03 01:08] LABS: PCO2 Arterial 66 mmHg (35-45); PO2 Arterial 107 mmHg (80-100)
[2023-06-03] MEDS: ZOSYN 3.375 GM Q8H per EXTENDED INFUSION IV SCH ×3 (02:16→18:33)
[2023-06-03] MEDS: Chlorhexidine MOUTHWASH 0.12% 15 ML UDC TOPICAL SCH ×6 (02:16→21:21)
[2023-06-03] MEDS: Metoclopramide 5 MG/ML VIAL (10 mg) IV SCH ×3 (02:52→21:22)
[2023-06-03] MEDS: Morphine 2 MG/ML SYRINGE IV PRN (02:52)
[2023-06-03] MEDS: Propofol 10 mg/ml 100 ML BTL 1,000 MG/100 ML BTL IV SCH ×5 (02:58→19:27)
[2023-06-03 03:36] LABS: Calcium 8.4 mg/dL (8.6-10.3); Creatinine, Serum 2.2 mg/dL (0.67-1.17); Magnesium 3.5 mg/dL (1.9-2.7); Potassium 4.3 mmol/L (3.5-5.0)
[2023-06-03 03:49] LABS: PCO2 Arterial 65 mmHg (35-45); PO2 Arterial 120 mmHg (80-100)
[2023-06-03 03:51] LABS: Hemoglobin 7.9 g/dL (13.2-16.3); Mean Corpuscular Hgb Conc 32.9 g/dL (31-36); Mean Corpuscular Volume 88.2 fL (80-97); Mean Platelet Volume 7.5 fL (7.5-11.2); Platelet Count 197 10^3/uL (150-450); Red Blood Count 2.72 10^6/uL (4.06-5.63); Red Cell Distribution Width 14.8 % (12-17); White Blood Count 23.4 10^3/uL (3.6-10.2)
[2023-06-03] MEDS: fentaNYL INFUSION 50 mcg/mL VL 2,500 MCG/50 ML VIAL IV SCH (04:14)
[2023-06-03 04:19] LABS: ABS Basophils 0.1 10^3/uL (0.0-0.1); ABS Lymphocytes 0.3 10^3/uL (1.0-4.8); ABS Monocytes 0.4 10^3/uL (0.0-1.1); ABS Neutrophils 22.5 10^3/uL (1.5-7.6); ABS Nucleated RBC 0.01 10^3/ul; Lymphocyte % 1.3 %; Nucleated Red Blood Cells % 0.1 %/100WBC (0.0-0.8)
[2023-06-03] MEDS ORDERED: Furosemide 40 mg/4 ml IV VIAL IV SLOW PU ONE ×2 (05:15→09:00)
[2023-06-03] MEDS ORDERED: Levalbuterol 0.63MG/3ML NEB UNIT OF USE INH PRN (05:31)
[2023-06-03] MEDS: Cisatracurium 100 MG in NS 0.9% 250 ml 200 ML IV SCH (05:55)
[2023-06-03] MEDS: Albuterol/Ipratropium NEB.SOL (2.5/0.5 MG) 3 ML NEB.SOLN INH SCH ×3 (07:01→19:15)
[2023-06-03] MEDS: Budesonide NEB 0.5 MG/2 ML NEB.SOLN INH SCH ×2 (07:02→19:14)
[2023-06-03] MEDS: Polyethylene Glycol 3350 17 GM PACKET PO SCH ×2 (07:21→21:21)
[2023-06-03] MEDS ORDERED: Artificial Tear OPHTH.OINT 3.5 GM BOTH EYES PRN (07:55)
[2023-06-03] MEDS: Pantoprazole VIAL 40 MG VIAL IV SCH (09:29)
[2023-06-03] MEDS: methylPREDNISolone SOD SUCC 40 mg/ml 1 ml VIAL IV SCH (09:29)
[2023-06-03 09:43] LABS: PO2 Arterial 115 mmHg (80-100)
[2023-06-03 09:45] LABS: PCO2 Arterial 86 mmHg (35-45)
[2023-06-03] MEDS: Norepinephrine 4 MG/250mL D5W 4,000 MCG/250 ML BAG IV SCH (10:01)
[2023-06-03] MEDS: Anidulafungin 100 MG in NS 0.9% 100 ml BAG 100 ML IVPB SCH (10:38)
[2023-06-03] MEDS: Midazolam PREMIXBAG 1 MG/ML NS 100 ML IV SCH ×2 (11:05→22:18)
[2023-06-03 11:44] LABS: Resp Rate 24
[2023-06-03 11:50] LABS: PCO2 Arterial 73 mmHg (35-45); PO2 Arterial 100 mmHg (80-100)
[2023-06-03] MEDS: CMC:Methylnaltrexone SQ (NF) 12 MG/0.6 ML VIAL SUBCUT SCH (12:52)
[2023-06-03 15:39] LABS: Resp Rate 24
[2023-06-03 15:44] LABS: PCO2 Arterial 60 mmHg (35-45); PO2 Arterial 95 mmHg (80-100)
[2023-06-03] MEDS: Artificial Tear OPHTH.OINT 3.5 GM BOTH EYES SCH ×4 (18:33→23:22)
[2023-06-03] MEDS: Senna TAB 8.6 mg TAB PO SCH (21:21)
[2023-06-04] MEDS: Artificial Tear OPHTH.OINT 3.5 GM BOTH EYES SCH ×12 (00:30→22:45)
[2023-06-04] MEDS: Tranexamic Acid 1,000 MG/10 ML SDV INH SCH (00:46)
[2023-06-04] MEDS: fentaNYL INFUSION 50 mcg/mL VL 2,500 MCG/50 ML VIAL IV SCH ×2 (01:14→22:31)
[2023-06-04] MEDS: Cisatracurium 100 MG in NS 0.9% 250 ml 200 ML IV SCH (01:18)
[2023-06-04] MEDS: ZOSYN 3.375 GM Q8H per EXTENDED INFUSION IV SCH ×3 (01:27→18:39)
[2023-06-04] MEDS: Chlorhexidine MOUTHWASH 0.12% 15 ML UDC TOPICAL SCH ×6 (01:27→19:39)
[2023-06-04] MEDS: Metoclopramide 5 MG/ML VIAL (10 mg) IV SCH ×3 (03:06→19:40)
[2023-06-04] MEDS: Propofol 10 mg/ml 100 ML BTL 1,000 MG/100 ML BTL IV SCH ×7 (03:07→19:40)
[2023-06-04] MEDS: Norepinephrine 4 MG/250mL D5W 4,000 MCG/250 ML BAG IV SCH (03:10)
[2023-06-04 03:42] LABS: Calcium 8.3 mg/dL (8.6-10.3); Creatinine, Serum 1.98 mg/dL (0.67-1.17); Magnesium 3.2 mg/dL (1.9-2.7); Potassium 4.8 mmol/L (3.5-5.0); eGFR CKD-EPI 36.3 (>60)
[2023-06-04 04:21] LABS: ABS Lymphocytes 0.6 10^3/uL (1.0-4.8); ABS Monocytes 0.8 10^3/uL (0.0-1.1); ABS Neutrophils 18.4 10^3/uL (1.5-7.6); ABS Nucleated RBC 0.03 10^3/ul; Hematocrit 23.6 % (38-53); Hemoglobin 7.8 g/dL (13.2-16.3); Mean Corpuscular Hemoglobin 29.4 pg (27-33); Mean Corpuscular Hgb Conc 32.9 g/dL (31-36); Mean Corpuscular Volume 89.1 fL (80-97); Mean Platelet Volume 7.8 fL (7.5-11.2); Nucleated Red Blood Cells % 0.2 %/100WBC (0.0-0.8); Platelet Count 171 10^3/uL (150-450); Red Blood Count 2.64 10^6/uL (4.06-5.63); Red Cell Distribution Width 14.7 % (12-17); White Blood Count 19.8 10^3/uL (3.6-10.2)
[2023-06-04] MEDS: Albuterol/Ipratropium NEB.SOL (2.5/0.5 MG) 3 ML NEB.SOLN INH SCH ×3 (07:11→20:15)
[2023-06-04] MEDS: Budesonide NEB 0.5 MG/2 ML NEB.SOLN INH SCH ×2 (07:11→20:16)
[2023-06-04 08:18] LABS: Resp Rate 24
[2023-06-04 08:20] LABS: PCO2 Arterial 44 mmHg (35-45); PO2 Arterial 91 mmHg (80-100)
[2023-06-04] MEDS: CMC:Methylnaltrexone SQ (NF) 12 MG/0.6 ML VIAL SUBCUT SCH (09:24)
[2023-06-04] MEDS: Pantoprazole VIAL 40 MG VIAL IV SCH (09:24)
[2023-06-04] MEDS: methylPREDNISolone SOD SUCC 40 mg/ml 1 ml VIAL IV SCH (09:25)
[2023-06-04] MEDS: Polyethylene Glycol 3350 17 GM PACKET PO SCH ×2 (09:25→19:39)
[2023-06-04] MEDS: Enoxaparin 40 MG/0.4 ML SYR SUBCUT SCH (09:25)
[2023-06-04] MEDS: Midazolam PREMIXBAG 1 MG/ML NS 100 ML IV SCH ×2 (10:45→22:36)
[2023-06-04] MEDS: Senna TAB 8.6 mg TAB PO SCH (19:40)
[2023-06-04] MEDS ORDERED: Acetaminophen IV 1 GM/100ML 1,000 MG/100 ML BAG IV PRN (23:37)
[2023-06-05] MEDS: Chlorhexidine MOUTHWASH 0.12% 15 ML UDC TOPICAL SCH ×6 (00:02→21:53)
[2023-06-05] MEDS: Artificial Tear OPHTH.OINT 3.5 GM BOTH EYES SCH ×10 (00:02→18:15)
[2023-06-05] MEDS: Propofol 10 mg/ml 100 ML BTL 1,000 MG/100 ML BTL IV SCH ×3 (00:38→11:25)
[2023-06-05] MEDS: ZOSYN 3.375 GM Q8H per EXTENDED INFUSION IV SCH ×2 (02:51→09:24)
[2023-06-05 04:29] LABS: Hematocrit 23.1 % (38-53); Hemoglobin 7.6 g/dL (13.2-16.3); Mean Corpuscular Hemoglobin 29.9 pg (27-33); Mean Corpuscular Volume 90.6 fL (80-97); Mean Platelet Volume 7.8 fL (7.5-11.2); Platelet Count 150 10^3/uL (150-450); Red Blood Count 2.55 10^6/uL (4.06-5.63); White Blood Count 18.5 10^3/uL (3.6-10.2)
[2023-06-05 04:45] LABS: ABS Eosinophils 0.1 10^3/uL (0.0-0.5); ABS Lymphocytes 1.1 10^3/uL (1.0-4.8); ABS Monocytes 0.8 10^3/uL (0.0-1.1); ABS Neutrophils 16.6 10^3/uL (1.5-7.6); ABS Nucleated RBC 0.01 10^3/ul; Calcium 8.3 mg/dL (8.6-10.3); Creatinine, Serum 1.83 mg/dL (0.67-1.17); Eosinophil % 0.3 %; Lymphocyte % 5.7 %; Magnesium 3.3 mg/dL (1.9-2.7); Nucleated Red Blood Cells % 0.1 %/100WBC (0.0-0.8); Potassium 5.7 mmol/L (3.5-5.0); eGFR CKD-EPI 39.9 (>60)
[2023-06-05] MEDS: Morphine 2 MG/ML SYRINGE IV PRN (07:14)
[2023-06-05] MEDS: Midazolam 2 mg/2 ml VIAL 1 mg/ml 2 ml VIAL (2 mg) IV SLOW PU PRN (07:15)
[2023-06-05] MEDS: Budesonide NEB 0.5 MG/2 ML NEB.SOLN INH SCH ×2 (07:19→19:30)
[2023-06-05] MEDS: Albuterol/Ipratropium NEB.SOL (2.5/0.5 MG) 3 ML NEB.SOLN INH SCH ×3 (07:19→19:30)
[2023-06-05] MEDS: Pantoprazole VIAL 40 MG VIAL IV SCH (08:15)
[2023-06-05] MEDS: methylPREDNISolone SOD SUCC 40 mg/ml 1 ml VIAL IV SCH (08:15)
[2023-06-05] MEDS: CMC:Methylnaltrexone SQ (NF) 12 MG/0.6 ML VIAL SUBCUT SCH (08:15)
[2023-06-05] MEDS: Enoxaparin 40 MG/0.4 ML SYR SUBCUT SCH (08:16)
[2023-06-05] MEDS: Metoclopramide 5 MG/ML VIAL (10 mg) IV SCH ×2 (08:16→21:24)
[2023-06-05] MEDS: Polyethylene Glycol 3350 17 GM PACKET PO SCH ×3 (08:16→22:21)
[2023-06-05] MEDS ORDERED: Furosemide 40 mg/4 ml IV VIAL IV SLOW PU ONE ×2 (08:25→15:28)
[2023-06-05 09:17] LABS: Calcium 8.3 mg/dL (8.6-10.3); Creatinine, Serum 1.74 mg/dL (0.67-1.17); Potassium 5.5 mmol/L (3.5-5.0); eGFR CKD-EPI 42.4 (>60)
[2023-06-05] MEDS ORDERED: Midazolam 2 mg/2 ml VIAL 1 mg/ml 2 ml VIAL (2 mg) IV SLOW PU PRN (09:23)
[2023-06-05] MEDS ORDERED: Acetaminophen IV 1 GM/100ML 1,000 MG/100 ML BAG IV PRN (10:16)
[2023-06-05] MEDS: Midazolam PREMIXBAG 1 MG/ML NS 100 ML IV SCH ×2 (11:20→22:27)
[2023-06-05 11:40] LABS: Albumin 2.8 g/dL (3.2-5.2)
[2023-06-05] MEDS ORDERED: D5W 1000 ml BAG 1,000 ML IV SCH (12:00)
[2023-06-05 12:21] LABS: Resp Rate 24
[2023-06-05 12:28] LABS: PCO2 Arterial 54 mmHg (35-45); PO2 Arterial 131 mmHg (80-100)
[2023-06-05 15:20] LABS: Calcium 8.3 mg/dL (8.6-10.3); Creatinine, Serum 1.69 mg/dL (0.67-1.17); Potassium 6.2 mmol/L (3.5-5.0); eGFR CKD-EPI 43.9 (>60)
[2023-06-05] MEDS ORDERED: Iodixanol (CONTRAST) 320 MG/ML 100 ML SDV IV ONE (15:36)
[2023-06-05 19:00] LABS: Calcium 8.5 mg/dL (8.6-10.3); Creatinine, Serum 1.64 mg/dL (0.67-1.17); Potassium 6.2 mmol/L (3.5-5.0); eGFR CKD-EPI 45.6 (>60)
[2023-06-05] MEDS ORDERED: Dextrose 50% Syringe 50 ml 25 GM/50 ML SYRINGE IV PUSH ONE (19:22)
[2023-06-05] MEDS ORDERED: Magnesium CITRATE LIQ 300 ML BTL PO ONE (20:47)
[2023-06-05] MEDS ORDERED: Lactulose 30 ml UDC PO ONE (21:00)
[2023-06-05] MEDS: fentaNYL INFUSION 50 mcg/mL VL 2,500 MCG/50 ML VIAL IV SCH (21:01)
[2023-06-05] MEDS: Senna TAB 8.6 mg TAB NG TUBE SCH (21:53)
[2023-06-05] MEDS: Polyethylene Glycol 3350 17 GM PACKET NG TUBE SCH (21:53)
[2023-06-05] MEDS ORDERED: Lactulose 30 ml UDC NG TUBE ONE (22:00)
[2023-06-05] MEDS: Senna TAB 8.6 mg TAB PO SCH (22:21)
[2023-06-05] MEDS: Cisatracurium 100 MG in NS 0.9% 250 ml 200 ML IV SCH (23:35)
[2023-06-06] MEDS: Tranexamic Acid 1,000 MG/10 ML SDV INH SCH ×2 (00:37→07:06)
[2023-06-06 00:51] LABS: Calcium 8.1 mg/dL (8.6-10.3); Creatinine, Serum 1.44 mg/dL (0.67-1.17); Potassium 5.9 mmol/L (3.5-5.0); eGFR CKD-EPI 53.3 (>60)
[2023-06-06 01:43] LABS: Resp Rate 24
[2023-06-06 01:46] LABS: PO2 Arterial 74 mmHg (80-100)
[2023-06-06] MEDS: Chlorhexidine MOUTHWASH 0.12% 15 ML UDC TOPICAL SCH ×7 (01:49→21:23)
[2023-06-06 01:51] LABS: PCO2 Arterial 92 mmHg (35-45)
[2023-06-06] MEDS: Propofol 10 mg/ml 100 ML BTL 1,000 MG/100 ML BTL IV SCH ×2 (02:00→12:42)
[2023-06-06 04:24] LABS: Resp Rate 30
[2023-06-06 04:26] LABS: PO2 Arterial 131 mmHg (80-100)
[2023-06-06 04:29] LABS: PCO2 Arterial 83 mmHg (35-45)
[2023-06-06 05:02] VITALS: BP 153/91
[2023-06-06 05:32] LABS: Hematocrit 28.7 % (38-53); Hemoglobin 9.2 g/dL (13.2-16.3); Mean Corpuscular Hemoglobin 29.5 pg (27-33); Mean Corpuscular Volume 92.2 fL (80-97); Platelet Count 177 10^3/uL (150-450); Red Blood Count 3.11 10^6/uL (4.06-5.63); Red Cell Distribution Width 14.8 % (12-17); White Blood Count 38.9 10^3/uL (3.6-10.2)
[2023-06-06 05:53] LABS: Albumin/Globulin Ratio 1.1 (1-3); Calcium 8.1 mg/dL (8.6-10.3); Creatinine, Serum 1.32 mg/dL (0.67-1.17); Globulin 2.8 g/dL (2-4); Magnesium 3.1 mg/dL (1.9-2.7); Potassium 6.5 mmol/L (3.5-5.0); Total Protein 5.8 g/dL (6.4-8.9); eGFR CKD-EPI 59.1 (>60)
[2023-06-06] MEDS ORDERED: Furosemide 40 mg/4 ml IV VIAL IV ONE ×2 (06:26→10:24)
[2023-06-06] MEDS: Albuterol/Ipratropium NEB.SOL (2.5/0.5 MG) 3 ML NEB.SOLN INH SCH ×3 (07:05→20:28)
[2023-06-06] MEDS: Budesonide NEB 0.5 MG/2 ML NEB.SOLN INH SCH ×2 (07:05→20:29)
[2023-06-06] MEDS ORDERED: Dextrose 50% Syringe 50 ml 25 GM/50 ML SYRINGE IV PUSH ONE (07:19)
[2023-06-06] MEDS: Metoclopramide 5 MG/ML VIAL (10 mg) IV SCH ×2 (07:58→21:23)
[2023-06-06] MEDS: methylPREDNISolone SOD SUCC 40 mg/ml 1 ml VIAL IV SCH (07:58)
[2023-06-06] MEDS: Pantoprazole VIAL 40 MG VIAL IV SCH (07:58)
[2023-06-06] MEDS: Enoxaparin 40 MG/0.4 ML SYR SUBCUT SCH (07:59)
[2023-06-06 08:01] LABS: ABS Basophils 0.1 10^3/uL (0.0-0.1); ABS Eosinophils 0.2 10^3/uL (0.0-0.5); ABS Lymphocytes 0.5 10^3/uL (1.0-4.8); ABS Monocytes 0.1 10^3/uL (0.0-1.1); ABS Neutrophils 38.1 10^3/uL (1.5-7.6); ABS Nucleated RBC 0.11 10^3/ul; Eosinophil % 0.5 %; Lymphocyte % 1.4 %; Nucleated Red Blood Cells % 0.3 %/100WBC (0.0-0.8)
[2023-06-06 08:02] LABS: RBC Morphology Normal (Normal); Smudge Cells Present
[2023-06-06 08:30] LABS: Resp Rate 30
[2023-06-06] MEDS: Midazolam PREMIXBAG 1 MG/ML NS 100 ML IV SCH ×2 (08:30→18:23)
[2023-06-06 08:32] LABS: PCO2 Arterial 60 mmHg (35-45); PO2 Arterial 80 mmHg (80-100)
[2023-06-06] MEDS: CMC:Methylnaltrexone SQ (NF) 12 MG/0.6 ML VIAL SUBCUT SCH (08:37)
[2023-06-06] MEDS: Sodium Polystyrene ORAL.SUSP 15 GM/60 ML BTL NG TUBE ONE ×2 (08:42→11:14)
[2023-06-06] MEDS: Polyethylene Glycol 3350 17 GM PACKET NG TUBE SCH ×3 (08:43→21:22)
[2023-06-06] MEDS ORDERED: Sodium Polystyrene RECTAL 30 GM/120 ML RECTAL.SUS PR ONE (09:00)
[2023-06-06 10:35] LABS: Resp Rate 26
[2023-06-06 10:37] LABS: PCO2 Arterial 66 mmHg (35-45); PO2 Arterial 115 mmHg (80-100)
[2023-06-06] MEDS: fentaNYL INFUSION 50 mcg/mL VL 2,500 MCG/50 ML VIAL IV SCH (12:14)
[2023-06-06 13:29] LABS: Blood Urea Nitrogen 78 mg/dL (6-24); CO2 Carbon Dioxide 41 mmol/L (22-32); Calcium 8.4 mg/dL (8.6-10.3); Chloride 106 mmol/L (101-111); Glucose 140 mg/dL (70-100); Potassium 6.7 mmol/L (3.5-5.0); Sodium 147 mmol/L (135-145); eGFR CKD-EPI 60.2 (>60)
[2023-06-06] MEDS ORDERED: Furosemide 100 mg/10 ml IV 100 MG in NS 0.9% 100 ml BAG 90 ML IV SCH (14:00)
[2023-06-06] MEDS: Naloxone 4 mg VIAL 0.4 MG/ML 10 ml VIAL (4 mg) SCH ×2 (14:14→21:22)
[2023-06-06] MEDS: CALCIUM GLUCONATE 1GM/50ML NS 1 GM/50 ML BAG IV SCH ×2 (15:06→15:12)
[2023-06-06] MEDS ORDERED: Cisatracurium 100 MG in NS 0.9% 250 ml 200 ML IV SCH (17:30)
[2023-06-06 17:45] LABS: Calcium 9.2 mg/dL (8.6-10.3); Creatinine, Serum 1.3 mg/dL (0.67-1.17); eGFR CKD-EPI 60.2 (>60)
[2023-06-06 17:56] LABS: UR Microalbumin (mg/L) < 15.0 mg/L; Urine Creatinine 25.13 mg/dL; Urine Creatinine Concentration 25.13 mg/dL (20.00-370.00)
[2023-06-06 17:59] LABS: Potassium 6.3 mmol/L (3.5-5.0)
[2023-06-06 18:31] LABS: PCO2 Arterial 56 mmHg (35-45); PO2 Arterial 81 mmHg (80-100)
[2023-06-06] MEDS: Senna TAB 8.6 mg TAB NG TUBE SCH (21:22)
[2023-06-07] MEDS ORDERED: Enoxaparin 40 MG/0.4 ML SYR SUBCUT SCH (09:00)
== END 2023-06-06 21:50 | disposition short-term general hospital (02) | DRG 870 ==
LOC: EDHOLD 10:38 → ED 10:38 → SUATTDRO 18:34 → MED 21:51 → SUATTDRO 05-24 13:29 → ICU 05-28 08:42
PROVIDERS: ADMIT Student in an Organized Health Care Education/Training Program; ATTEND Internal Medicine